=== PATIENT | male | born 1990 | race African-American/Black ===

== ENCOUNTER 2017-08-23 13:39 | Emergency (ER) | payer SELFPAY ==
--- NOTE | 2017-08-23 14:12 | RAD ---
LEFT MIDDLE FINGER THREE VIEWS: History: Finger pain. FINDINGS: Joint spaces are preserved. No acute fracture, dislocation, or aggressive osseous erosions. IMPRESSION: 1. No acute osseous abnormalities are demonstrated. POS: [facility]
[2017-08-23] MEDS ORDERED: Lidocaine 1% PF 5 ML VIAL ONE (14:36)
== END 2017-08-23 15:01 | disposition home or self-care (01) ==
LOC: ERS 13:39
DX: S61.333A Puncture wound without foreign body of left middle finger with damage to nail, initial encounter (principal); W29.8XXA Contact with other powered hand tools and household machinery, initial encounter; Y99.0 Civilian activity done for income or pay
CPT/HCPCS: 10060; J2001

== ENCOUNTER 2019-11-04 15:33 | Emergency (ER) | payer SELFPAY ==
[2019-11-04 16:04] LABS: #Eosinphils 0.1 thou/uL (0.0-0.7); #Monocytes 0.4 thou/uL (0.11-0.59); #Neutrophils 3.3 thou/uL (1.40-6.50); %Basophils 0.7 % (0.0-1.0); %Eosinophils 2.5 % (0.0-10.0); %Lymphocytes 33.6 % (21.0-51.0); %Monocytes 6.9 % (0.0-10.0); %Neutrophils 56.3 % (42.0-75.0); Hemoglobin 13.9 g/dL (14.0-18.0); Mean Corpuscular HGB CONC 33.6 g/dL (32.0-36.0); Mean Corpuscular Hemoglobin 28.9 pg (27.0-31.0); Platelet Count 300 thou/uL (130-400); RBC Distribution Width 12.7 % (11.5-14.5); Red Blood Cell (RBC) Count 4.81 mill/uL (4.70-6.10); White Blood Cell (WBC) Count 5.8 thou/uL (4.8-10.8)
--- NOTE | 2019-11-04 16:08 | RAD ---
EXAM: Two views chest PROVIDED CLINICAL HISTORY: Syncopal episode with shaking. Dizziness. Fall. COMPARISON: None FINDINGS: Cardiac silhouette and pulmonary vasculature are within normal limits. The lungs are clear. The osse ous structures have a normal appearance. IMPRESSION: No acute cardiopulmonary process.
[2019-11-04 16:27] LABS: ALT (SGPT) 32 U/L (8-55); AST (SGOT) 19 U/L (5-34); Alkaline Phosphatase 79 U/L (40-110); Anion Gap 10 mmol/L (10-20); BUN (Urea Nitrogen) 9 mg/dL (8.9-20.6); Bilirubin, Total 0.2 mg/dL (0.2-1.2); CK (CPK) 99 U/L (30-200); Calc. Creatinine Clearance 0 mL/min (70-130); Calcium 9.1 mg/dL (7.8-10.44); Carbon Dioxide 24 mmol/L (22-29); Chloride 108 mmol/L (98-107); Estimated GFR-MDRD Greater than 90; Globulin 2.6 g/dL (2.4-3.5); Glucose 118 mg/dL (70-105); Potassium 4.2 mmol/L (3.5-5.1); Protein, Total 6.6 g/dL (6.0-8.3); Sodium 138 mmol/L (136-145)
[2019-11-04 16:30] LABS: CKMB 0.4 ng/mL (0-6.6)
--- NOTE | 2019-11-04 17:10 | CT ---
CT HEAD WITHOUT IV CONTRAST COMPARISON: None. HISTORY: Seizure. 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 TECHNIQUE: Axial CT imaging at 5 mm intervals from vertex through skull base without contrast FINDINGS: There is no evidence of an acute infarction, hemorrhage, mass effect, or midline shift. The ventricul ar system is normal in size, shape, and position. Minimal mucosal thickening is seen in a few left ethmoidal air cells. Remainder of the visualized par anasal sinuses and mastoid air cells are clear. Osseous structures appear intact.No calvarial defect is identified and there is no calvarial fracture seen. IMPRESSION: 1. No acute intracranial abnormality demonstrated. 2. Given history of seizure, a nonemergent MRI brain is suggested for further evaluation.
== END 2019-11-04 17:48 | disposition home or self-care (01) ==
LOC: ERS 15:33
DX: R56.9 Unspecified convulsions (principal)
CPT/HCPCS: 36415; 70450; 71046; 80053; 82550; 82553; 84484; 85025; 93005